=== PATIENT | male | born 1955 | race Caucasian/White ===

== ENCOUNTER → 2016-12-06 | Day surgery (SDC) | payer OTHER ==
[2016-12-05 09:08] VITALS: Ht 172.7 cm; Wt 80.5 kg
[~2016-12-06] VITALS: Ht 172.7 cm; Wt 80.5 kg
[~2016-12-06] MED LIST: ASPI325T45 PO; ATEN50TA8 PO; FELO10TA PO; FOLI1TAB7 PO; LIDOCAINE HCL 2% 2 ML VIAL (20MG/ML) INFIL ONE; LISI-787 PO; OMEG10007 PO; PARO1TAB27 PO; PROPOFOL IV EMULSION 10 MG/ML 20 ML VIAL IV ONE; SIMV40TA2 PO; SODIUM CHLORIDE 0.9% 500ML 500 ML IV ONE
--- NOTE | 2016-12-06 09:43 | Endo History and Physical ---
History & Physical Date of Service: Dec 06, 2016. Chief Complaint: SCREENING Referring Physician: DR WHEELER History of Present Illness 61 yo CM who presents for screening colonoscopy. Past Surgical History Hx Cardiac Surgery: No Hx Internal Defibrillator: No Hx Pacemaker: No Hx Abdominal Surgery: Yes (APPY, HERNIA REPAIR X2) Hx of Implantable Prosthesis: No Hx Post-Op Nausea and Vomiting: No Hx Cancer Surgery: No Hx Thoracic Surgery: No Hx Orthopedic: No Hx Urinary Tract Surgery: No Family History None Social History Smoking Status: Never Smoker Hx Substance Use: No Hx Alcohol Use: Yes (6 BEERS/DAY) Allergies Coded Allergies: No Known Allergies (Unverified , 12/06/16) Current Medications Reported Home Medications Medications Dose Route/Sig Max Daily Dose Days Date Category Folvite (Folic Acid) 1 Mg Tab 1 Mg PO QAM 12/05/16 Reported Jackson-3 (Fish Oil) 1 Ea Cap 1 Cap PO QAM 12/05/16 Reported Zocor (Simvastatin) 40 Mg Tab 40 Mg PO QAM 12/05/16 Reported Paxil (Paroxetine HCl) 20 Mg Tab 20 Mg PO QAM 12/05/16 Reported Zestoretic 20MG/12.5MG (HCTZ/Lisinopril) Tab 1 Tab PO QAM 12/05/16 Reported Plendil Er (Felodipine) 10 Mg Tab 10 Mg PO QAM 12/05/16 Reported Tenormin (Atenolol) 50 Mg Tab 50 Mg PO QAM 12/05/16 Reported Aspirin 325 Mg Tab 325 Mg PO QAM 12/05/16 Reported Vital Signs Weight (Kilograms): 80.45 Height (Feet): 5 Height (Inches): 8 Date Time Temp Pulse Resp B/P Pulse Ox O2 Delivery O2 Flow Rate FiO2 12/06/16 09:29 36.7 51 18 142/85 97 Room Air Physical Exam General Appearance: WD/WN, no apparent distress Respiratory/Chest: Auscultation: breath sounds normal Cardiovascular: Heart Auscultation: RRR Abdomen: Bowel Sounds: normal Inspection & Palpation: soft, non-distended, no tenderness, guarding & rebound Assessment and Plan Assessment: 61 yo CM who presents for screening colonoscopy. Plan: Proceed with colonoscopy.
--- NOTE | 2016-12-06 10:05 | Discharge Instructions ---
Endoscopy Patient Instructions Date / Procedure(s) Performed Dec 06, 2016. Colonoscopy Allergy Information Coded Allergies: No Known Allergies (Unverified , 12/06/16) Discharge Date / Findings Dec 06, 2016. Non-specific colitis s/p biopsies Colon polyp Medication Instructions Stopped Medication(s): ASPIRIN 325MG-12/05/16 OK to resume all medications today as prescribed Reported Home Medications Medications Dose Route/Sig Max Daily Dose Days Date Category Folvite (Folic Acid) 1 Mg Tab 1 Mg PO QAM 12/05/16 Reported [place]-3 (Fish Oil) 1 Ea Cap 1 Cap PO QAM 12/05/16 Reported Zocor (Simvastatin) 40 Mg Tab 40 Mg PO QAM 12/05/16 Reported Paxil (Paroxetine HCl) 20 Mg Tab 20 Mg PO QAM 12/05/16 Reported Zestoretic 20MG/12.5MG (HCTZ/Lisinopril) Tab 1 Tab PO QAM 12/05/16 Reported Plendil Er (Felodipine) 10 Mg Tab 10 Mg PO QAM 12/05/16 Reported Tenormin (Atenolol) 50 Mg Tab 50 Mg PO QAM 12/05/16 Reported Aspirin 325 Mg Tab 325 Mg PO QAM 12/05/16 Reported Provider Instructions Activity Restrictions - No exercising or heavy lifting for 24 hours. - Do not drink alcohol the day of the procedure. - Do not drive a car or operate machinery until the day after the procedure. - Do not make any important decisions or sign important papers in 24 hours after the procedure. Following Day: - Return to full activity which may include returning to work/school. Diet Start your diet with liquids and light foods (jello, soup, juice, toast). Then eat your usual diet if not nauseated. Treatment For Common After Affects For mild abdominal pain, bloating, or excessive gas: - Rest - Eat lightly - Lie on right side Follow-Up Information Follow-up with DR WHEELER as scheduled Anesthesia Information What You Should Know You have had a procedure that required some medicine to reduce anxiety and discomfort. This treatment is called moderate sedation. After receiving the treatment, you may be sleepy, but you will be able to breathe on your own. The effects of the treatment may last for several hours. Follow these instructions along with Activity/Diet recommendations noted above: * Do NOT do anything where dizziness or clumsiness would be dangerous. * Rest quietly at home today, then you can be up and about tomorrow. * Have a responsible person stay with you the rest of today. * You may have had an I.V. today. If so, you may take the dressing off later today. Recommendations Call your doctor if: * Trouble breathing * Continuous vomiting for more than 24 hours * Temperature above 101 degrees * Severe abdominal pain or bloating * Pain not relieved by pain medicine ordered * There is increased drainage or redness from any incision * A large amount of rectal bleeding greater than 2-3 tablespoons. (If you had a polyp/s removed or have hemorrhoids, a small amount of blood - from the rectum is to be expected.) * You have any unanswered questions or concerns. IN THE EVENT OF A SERIOUS EMERGENCY, GO TO THE NEAREST EMERGENCY ROOM Your discharge instructions were prepared by provider Ángel Alvarez. Patient Instructions Signature Page Reji Toscano Patient (or Guardian) Signature/Date: I have read and understand the instructions given to me by my caregivers. Caregiver/RN/Doctor Signature/Date: The above-named patient and/or guardian has received patient instructions on this date. + Original Patient Signature Page (only) stays with chart. Please make copy for patient.
--- NOTE | 2016-12-06 10:08 | GI REPORT ---
Procedure Date: 12/06/2016 9:30 AM Procedure: Colonoscopy Indications: Screening for colorectal malignant neoplasm Medicines: Monitored Anesthesia Care Complications: No immediate complications. Estimated Blood Loss: Estimated blood loss: none. Procedure: Pre-Anesthesia Assessment: - Prior to the procedure, a History and Physical was performed, and patient medications and allergies were reviewed. The patient's tolerance of previous anesthesia was also reviewed. The risks and benefits of the procedure and the sedation options and risks were discussed with the patient. All questions were answered, and informed consent was obtained. Prior Anticoagulants: The patient has taken aspirin, last dose was 1 day prior to procedure. ASA Grade Assessment: II - A patient with mild systemic disease. After reviewing the risks and benefits, the patient was deemed in satisfactory condition to undergo the procedure. After I obtained informed consent, the scope was passed under direct vision. Throughout the procedure, the patient's blood pressure, pulse, and oxygen saturations were monitored continuously. The scope was introduced through the anus and advanced to the terminal ileum. The colonoscopy was performed without difficulty. The patient tolerated the procedure well. The quality of the bowel preparation was good. The terminal ileum, ileocecal valve, appendiceal orifice, and rectum were photographed. Findings: A 5 mm polyp was found in the ascending colon. The polyp was sessile. The polyp was removed with a hot snare. Resection and retrieval were complete. Localized mild inflammation characterized by erythema was found in the sigmoid colon. Biopsies were taken with a cold forceps for histology. Impression: - One 5 mm polyp in the ascending colon, removed with a hot snare. Resected and retrieved. - Localized mild inflammation was found in the sigmoid colon secondary to colitis. Biopsied. Recommendation: - Resume previous diet. - Continue present medications. - Repeat colonoscopy for surveillance based on pathology results. - Return to primary care physician as previously scheduled. Ángel Alvarez DO 12/06/2016 10:09:06 AM This report has been signed electronically. Note Initiated On: 12/06/2016 9:30 AM I attest to the content of the Intraoperative Record and orders documented therein, exceptions below
--- NOTE | 2016-12-06 10:23 | Anesthesiology Progress Note ---
Anesthesia Post Op Note Date & Time Dec 06, 2016 at 10:23 Vital Signs Pain Intensity: 0 Vital Signs Past 12 Hours Date Time Temp Pulse Resp B/P Pulse Ox O2 Delivery O2 Flow Rate FiO2 12/06/16 10:08 57 16 123/72 99 Room Air 12/06/16 09:29 36.7 51 18 142/85 97 Room Air Notes Mental Status: alert / awake / arousable, participated in evaluation Pt Amnestic to Procedure: Yes Nausea / Vomiting: adequately controlled Pain: adequately controlled Airway Patency, RR, SpO2: stable & adequate BP & HR: stable & adequate Hydration State: stable & adequate Anesthetic Complications: no major complications apparent Pt doing well.
[2016-12-06 10:42] VITALS: BP 139/80; PULSE 66; O2SAT 97
== END | disposition home or self-care (01) ==
LOC: C.GI 08:56
PROVIDERS: ATTEND Internal Medicine
DX: Z12.11 Encounter for screening for malignant neoplasm of colon (principal); D12.6 Benign neoplasm of colon, unspecified; K52.9 Noninfective gastroenteritis and colitis, unspecified; Z79.82 Long term (current) use of aspirin; Z79.899 Other long term (current) drug therapy

== ENCOUNTER → 2016-12-07 | Outpatient (CLI) | payer OTHER ==
[~2016-12-07] MED LIST changes: -LIDOCAINE HCL 2% 2 ML VIAL (20MG/ML) INFIL ONE; -PROPOFOL IV EMULSION 10 MG/ML 20 ML VIAL IV ONE; -SODIUM CHLORIDE 0.9% 500ML 500 ML IV ONE
--- NOTE | 2016-12-07 10:35 | DIAGNOSTIC IMAGING REPORT ---
ABDOMINAL ULTRASOUND, RIGHT UPPER QUADRANT HISTORY: R10.9 Abdominal pain of multiple blkatS03.19 History of pancreat. COMPARISON: None. FINDINGS: Pancreas: The pancreas demonstrates a normal echotexture. Liver: Unremarkable. Gallbladder: No gallbladder wall thickening. No gallstones. CBD: 6 mm. Right kidney: No hydronephrosis. IMPRESSION: No significant abnormality identified within the right upper quadrant. Electronically signed by: Edu Au M.D. 12/07/2016 10:33 AM Dictated Date/Time: 12/07/2016 10:33 AM
== END | disposition home or self-care (01) ==
LOC: C.ULTR 10:05
PROVIDERS: ATTEND Registered Nurse
DX: R10.9 Unspecified abdominal pain (principal); Z87.19 Personal history of other diseases of the digestive system

== ENCOUNTER → 2016-12-19 | Outpatient (CLI) | payer OTHER ==
[~2016-12-19] MED LIST changes: +OPTIRAY 320 IV PRN
--- NOTE | 2016-12-19 09:35 | DIAGNOSTIC IMAGING REPORT ---
CT ABDOMEN COMBO CT DOSE: 753.81 mGy.cm CLINICAL HISTORY: Upper abdominal pain. History of pancreatitis. TECHNIQUE: Unenhanced images were obtained through the upper abdomen. The patient was then scanned in a dynamic helical fashion during intravenous administration of 90 cc Optiray 320. Arterial phase and portal phase imaging was performed. COMPARISON STUDY: Biliary ultrasound dated 12/07/2016 FINDINGS: There are nonspecific peripheral airspace opacities with thin the right middle lobe laterally. No ductal calcifications are visualized. No renal calculi are visualized. There is a 3 mm hypodensity within the right hepatic lobe. This is too small to characterize but likely represents a cyst. Liver appears otherwise normal. The portal vein appears patent. The hepatic vein appears patent. There is no ductal dilatation. No gallbladder abnormalities are visualized. The spleen appears normal. No pancreatic calcifications are visualized. Masses are visualized. There is no pancreatic ductal dilatation. The peripancreatic fat appears normal. There are no peripancreatic fluid collections. No adrenal masses are visualized. There is no evidence of abdominal aortic dilatation. There is a to small to characterize 4 mm hypodensity within the lower pole the left kidney, likely representing a cyst. There is a 14 mm left perirenal density abutting the renal capsule. This is hyperdense on noncontrast images, and demonstrates equivocal slight enhancement. A 6 month follow-up study is recommended. IMPRESSION: 1. No pancreatic abnormalities identified 2. 14 mm left perirenal/subcapsular density. While this may similarly represent hyperdense fluid, there is equivocal slight enhancement. This reason a 6 month follow-up study is recommended 3. Minor peripheral airspace opacities in the right middle lobe laterally Electronically signed by: Mono Andino M.D. 12/19/2016 9:33 AM Dictated Date/Time: 12/19/2016 9:26 AM
== END | disposition home or self-care (01) ==
LOC: C.CTS 08:55
PROVIDERS: ATTEND Registered Nurse
DX: R10.9 Unspecified abdominal pain (principal)